=== PATIENT | male | born 1975 | race Caucasian/White ===

== ENCOUNTER → 2022-10-20 | Outpatient (CLI) | payer OTHER ==
[2022-10-20 20:39] LABS: T4, Free (Free Thyroxine) 1.34 ng/dL (0.80-1.80)
--- NOTE | 2022-10-21 16:10 | NM ---
EXAMINATION TYPE: NM thyroid image w uptake DATE OF EXAM: 10/21/2022 COMPARISON: NONE CLINICAL INDICATION: Male, 47 years old with history of E05.00; TECHNIQUE: Thyroid iodine uptake is calculated and images performed after the oral administration of 305 uCi 1-123 Capsule. FINDINGS: Scan images suggest hot nodule at the right midpole. Remaining gland shows homogeneous upta ke. The 4 hour iodine uptake is calculated at 13.7% (normal range 8-14%). The 24-hour iodine uptake is calculated at 30.6% (normal range 15-35%). IMPRESSION: 1. Scan images showing a possible right midpole hot nodule. Correlate with TFTs to assess for potenti al hyperfunctioning adenoma. 2. Uptake measurements are borderline increased at 4 hours and upper limits of normal at 24 hours. Ag ain, correlate with TFTs and patient's symptoms as these findings may be compatible with hyperfunctio danish adenoma.
== END | disposition home or self-care (01) ==
LOC: RADNMMAIN 08:44
PROVIDERS: ATTEND Internal Medicine Endocrinology, Diabetes & Metabolism
DX: E05.10 Thyrotoxicosis with toxic single thyroid nodule without thyrotoxic crisis or storm (principal)
CPT/HCPCS: 78014; 84439; 84443; 84445; 84480

== ENCOUNTER → 2022-11-30 | Outpatient (CLI) | payer OTHER ==
[2022-12-01 02:50] LABS: T4, Free (Free Thyroxine) 1.29 ng/dL (0.80-1.80)
== END | disposition home or self-care (01) ==
LOC: LABWHC1 16:08
PROVIDERS: ATTEND Internal Medicine Endocrinology, Diabetes & Metabolism
DX: E05.00 Thyrotoxicosis with diffuse goiter without thyrotoxic crisis or storm (principal)
CPT/HCPCS: 36415; 84439; 84443; 84480

== ENCOUNTER → 2023-03-09 | Outpatient (CLI) | payer OTHER ==
[2023-03-10 03:01] LABS: T4, Free (Free Thyroxine) 1.21 ng/dL (0.80-1.80)
== END | disposition home or self-care (01) ==
LOC: LABWHC1 15:08
PROVIDERS: ATTEND Internal Medicine Endocrinology, Diabetes & Metabolism
DX: E04.1 Nontoxic single thyroid nodule (principal)
CPT/HCPCS: 36415; 84439; 84443; 84480

== ENCOUNTER → 2023-05-18 | Outpatient (CLI) | payer OTHER ==
[2023-05-19 03:06] LABS: T4, Free (Free Thyroxine) 1.24 ng/dL (0.80-1.80)
--- NOTE | 2023-05-19 15:48 | US ---
EXAMINATION TYPE: US thyroid st tissue head/neck DATE OF EXAM: 05/18/2023 COMPARISON: NONE CLINICAL INDICATION: Male, 47 years old with history of E04.1 NONTOXIC SINGLE THYROID NODULE; nuc med study, possible right hot nodule GLAND SIZE: Right Lobe: 5.3x1.9x1.8 cm Overall Parenchyma: homogeneous Left Lobe: 4.9x1.3x1.3 cm Overall Parenchyma: homogeneous Isthmus Thickness: 0.2 cm NODULES RIGHT: # of nodules measured on right: 0 LEFT: # of nodules measured on left: 0 ISTHMUS: # of nodules measured in the isthmus: 0 Bilateral neck scanned, no evidence of lymphadenopathy. One lymph node noted right medial neck: 2.0x1.1x0.3cm IMPRESSION: No suspicious thyroid nodules. Lymph node may be within the right neck.
== END | disposition home or self-care (01) ==
LOC: RADUSWWP 15:25
PROVIDERS: ATTEND Internal Medicine Endocrinology, Diabetes & Metabolism
DX: E04.1 Nontoxic single thyroid nodule (principal); E05.90 Thyrotoxicosis, unspecified without thyrotoxic crisis or storm
CPT/HCPCS: 76536; 84439; 84443; 84481

== ENCOUNTER → 2023-09-15 | Outpatient (CLI) | payer OTHER ==
[2023-09-15 19:17] LABS: T4, Free (Free Thyroxine) 1.32 ng/dL (0.80-1.80)
== END | disposition home or self-care (01) ==
LOC: LABWHC1 15:13
PROVIDERS: ATTEND Internal Medicine Endocrinology, Diabetes & Metabolism
DX: E05.90 Thyrotoxicosis, unspecified without thyrotoxic crisis or storm (principal)
CPT/HCPCS: 36415; 84439; 84443; 84480

== ENCOUNTER → 2024-01-26 | Outpatient (CLI) | payer OTHER ==
[2024-01-27 03:17] LABS: T4, Free (Free Thyroxine) 1.31 ng/dL (0.80-1.80)
== END | disposition home or self-care (01) ==
LOC: LABWHC1 15:19
PROVIDERS: ATTEND Internal Medicine Endocrinology, Diabetes & Metabolism
DX: E05.90 Thyrotoxicosis, unspecified without thyrotoxic crisis or storm (principal)
CPT/HCPCS: 36415; 84439; 84443; 84480